=== PATIENT | male | born 1985 | race Caucasian/White ===

== ENCOUNTER 2016-11-25 23:22 | Emergency (ER) | payer MEDICAID ==
[2015-03-26 09:43] VITALS: BMI 21.4
[~2016-11-25 23:22] MED LIST: AMBIEN5 MG PO; KLONOPIN1 MG PO; LEVAQUIN750 MG PO
== END 2016-11-26 00:18 | disposition home or self-care (01) ==
LOC: D.ER 23:22
DX: J32.8 Other chronic sinusitis (principal); B95.62 Methicillin resistant Staphylococcus aureus infection as the cause of diseases classified elsewhere; J34.0 Abscess, furuncle and carbuncle of nose

== ENCOUNTER 2018-07-07 15:07 | Emergency (ER) | payer MEDICAID ==
[~2018-07-07] VITALS: Ht 180.3 cm; Wt 68.2 kg
[2018-07-07 15:11] VITALS: Ht 180.3 cm; Wt 68.2 kg
[2018-07-07] MEDS ORDERED: KLONOPIN1 MG PO (15:14)
[2018-07-07] MEDS ORDERED: BUPRENORPHINE HC8 MG SL (15:15)
[2018-07-07] MEDS ORDERED: VIBRAMYCIN 100100 MG PO (16:23)
[2018-07-07 16:55] VITALS: BP 113/73
== END 2018-07-07 16:55 | disposition home or self-care (01) ==
LOC: D.ER 15:07
DX: L03.114 Cellulitis of left upper limb (principal)